=== PATIENT | female | born 1970 | race Caucasian/White ===

== ENCOUNTER 2018-03-23 05:28 | Observation (INO) | payer OTHER ==
--- NOTE | 2018-03-18 13:36 | GHP ---
DATE OF ADMISSION: 03/23/2018 ADMITTING DIAGNOSIS: 1. Menorrhagia, failed ablation. 2. Uterine leiomyomata. HISTORY OF PRESENT ILLNESS: The patient is a 47-year-old nulliparous female who presents to the office for a surgical consult. The patient is status post an endometrial ablation, hysteroscopy and myomectomy in 02/19/17, who presents now with complaints of heavy menses. She stated she had no cycles for 8 months after the ablation and then about 2 months ago, she began to have her menses again. They last anywhere from 5 to 6 days and are even heavier than prior to ablation. She notes small sized clots. She wears tampons and changes them every 1 to 2 hours. She states her bleeding is interfering with her lifestyle. She also notes midcycle pain that is worse on the right side than the left, lasting about 3 to 5 days each month. Minimal relief with Tylenol and Advil. She does note some mild nausea with pain, but no vomiting. She denies any intermenstrual bleeding. The patient does have a history of anemia. Pelvic ultrasound a year ago showed uterus with numerous fibroids filling the cavity ranging anywhere from 2 to 5 cm. Pap smears are up to date. The patient is interested in definitive treatment at this time. She desires a hysterectomy with removal of her right ovary. PAST OB HISTORY: Patient is nulliparous. 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 Cycles were regular, but heavy and then she underwent an ablation in 2016 and had no cycles for 8 months; now cycles are heavier and lasting longer. She denies a history of abnormal Pap smears or any exposure to sexually transmitted diseases. CURRENT MEDICATIONS: Tylenol as needed, vitamin D3, levothyroxine 50 mcg, and Cytomel 5 mcg. ALLERGIES: No known drug allergies. PAST MEDICAL HISTORY: Infertility, hypothyroidism, uterine fibroids, menorrhagia. PAST SURGICAL HISTORY: In 2003, myomectomy. In 2008, laparoscopy with resection of uterine fibroids and scar tissue. In 2009, laparoscopy with resection of scar tissue, and laparotomy. In 01/2017, she had an endometrial ablation, hysteroscopy with removal of fibroids. FAMILY HISTORY: Maternal grandfather, colon cancer. Father, heart disease. Mother and paternal grandmother, arthritis. SOCIAL HISTORY: Patient is and lives with her . 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 She denies any current alcohol, tobacco, or illicit drug use. REVIEW OF SYSTEMS: Ten point review of systems negative. Pertinent positives noted in HPI. LABORATORY: Hemoglobin 13.9, hematocrit 42.4. STUDIES: Enlarged uterus measuring 12 x 8 x 10 cm with multiple fibroids, largest measuring 5 x 5 cm; second fibroid is located left anterior measuring 4 x 4 x 3 cm and third fibroid located left mid uterus measuring 2 x 2 x 2 cm. Bilateral ovaries normal. Small amount of free fluid seen. PHYSICAL EXAMINATION: VITAL SIGNS: On admission vital signs are stable. Patient is afebrile. GENERAL: The patient is well-nourished, well-developed female. Alert and oriented x3. No apparent distress. CARDIOVASCULAR: Regular rate and rhythm. LUNGS: Clear to auscultation. SKIN: Warm, dry without rash. NEURO: Grossly intact. ABDOMEN: Soft, nontender, nondistended. Multiple surgical scars. BIMANUAL: Uterus is enlarged to about 10-12 week size , irregular, mobile, nontender. No adnexal masses noted. EXTREMITIES: Normal to inspection without calf tenderness or edema. ASSESSMENT/PLAN: Patient is a 47-year-old nulliparous female with menorrhagia, failed ablation, and uterine leiomyomata. 1. Discussed the procedure of laparoscopic hysterectomy with removal of uterus , bilateral tubes and right ovary. Discussed its limitations, n.p.o. status, postop recovery and need for possible large incision. 2. Discussed risks, benefits, alternatives of the procedure including but not limited to, bleeding, infection, and damage to surrounding organs. The patient understands all risks of surgery and wants to proceed at this time. 3. Antibiotics environmental service aide to operating room. 4. Sequential compression devices for deep venous thrombosis prophylaxis. /[id number]/MODL MTDD
[2018-03-23] MEDS ORDERED: PHENAZOPYRIDINE HCL 100 MG TAB PO ONE (05:36)
[2018-03-23] MEDS ORDERED: ceFAZolin 2 GM/DEXTROSE 100 ML IV ONE (05:36)
[2018-03-23] MEDS ORDERED: LR 1,000 ML IV ONE (05:37)
[2018-03-23] MEDS ORDERED: PHENAZOPYRIDINE HCL 200 MG TAB PO ONE (06:15)
[2018-03-23] MEDS ORDERED: SCOPOLAMINE HYDROBROMIDE 1 MG/3 DAYS PATCH TD ONE (06:21)
[2018-03-23] MEDS ORDERED: MIDAZOLAM 2 MG/2 ML VIAL IVP ONE (06:21)
[2018-03-23] MEDS ORDERED: BUPIVACAINE 0.5% 30 ML SDV ONE (06:25)
--- NOTE | 2018-03-23 07:05 | PDANEPAE ---
ANE Past Medical History - Cardiovascular History Hx Hypertension: No Hx Arrhythmias: No Hx Chest Pain: No Hx Coronary Artery / Peripheral Vascular Disease: No Hx CHF / Valvular Disease: No Hx Palpitations: No - Pulmonary History Hx COPD: No Hx Asthma/Reactive Airway Disease: No Hx Recent Upper Respiratory Infection: No Hx Oxygen in Use at Home: No Hx Sleep Apnea: No Sleep Apnea Screening Result - Last Documented: Negative - Neurologic History Hx Cerebrovascular Accident: No Hx Seizures: No Hx Dementia: No - Endocrine History Hx Diabetes: No - Renal History Hx Renal Disorders: No - Liver History Hx Hepatic Disorders: No - Neurological & Psychiatric Hx Hx Neurological and Psychiatric Disorders: No - Cancer History Hx Cancer: No - Congenital Disorder History Hx Congenital Disorders: No - GI History Hx Gastrointestinal Disorders: No - Other Health History Other Health History: none - Chronic Pain History Chronic Pain: No - Surgical History Prior Surgeries: myomectomy uterine ablation last surgery. dental implants 03/19 ANE Review of Systems Review of Systems: - Exercise capacity METS (RN): 5 METS ANE Patient History - Allergies Allergies/Adverse Reactions: No Known Allergies Allergy (Verified 02/19/18 11:35) - Home Medications Home Medications: Acetaminophen [Tylenol 325mg (*)] 325 mg PO Q6 PRN 02/19/18 [Last Taken 03/21/18 ] Cholecalciferol Vit D3 [Vitamin D3 (*)] 1,000 units PO DAILY 02/19/18 [Last Taken 02/21/18] Levothyroxine [Synthroid 50 mcg (*)] 50 mcg PO DAILY06 02/19/18 [Last Taken ] Liothyronine Sodium [Cytomel 5 mcg (*)] 5 mcg PO BID 02/19/18 [Last Taken ] - NPO status NPO Since - Liquids (Date): 03/22/18 NPO Since - Liquids (Time): 20:00 NPO Since - Solids (Date): 03/22/18 NPO Since - Solids (Time): 17:30 - Anes Hx Anes Hx: post operative nausea - Smoking Hx Smoking Status: Never smoked - Family Anes Hx Family Anes Hx: none Family Hx Anesthesia Complications: none ANE Labs/Vital Signs - Vital Signs Blood Pressure: 112/73 Heart Rate: 72 Respiratory Rate: 16 O2 Sat (%): 95 Height: 162.56 cm Weight: 58.967 kg ANE Physical Exam - Airway Neck exam: FROM Mallampati Score: Class 1 Mouth exam: normal dental/mouth exam - Pulmonary Pulmonary: clear to auscultation - Cardiovascular Cardiovascular: regular rate and rhythym - ASA Status ASA Status: II ANE Anesthesia Plan Anesthesia Plan: general endotracheal anesthesia
[2018-03-23] MEDS ORDERED: fentaNYL 100 MCG/2 ML INJ ONE ×2 (07:08→10:24)
[2018-03-23] MEDS ORDERED: PROPOFOL 200 MG/20 ML VIAL ONE (07:08)
[2018-03-23] MEDS ORDERED: ROCURONIUM 50 MG/5 ML VIAL ONE ×2 (07:10→07:37)
[2018-03-23] MEDS ORDERED: DEXAMETHASONE 4 MG/ML VIAL ONE (07:10)
--- NOTE | 2018-03-23 07:15 | PDHPUP ---
History & Physical Update H&P update statement: This history and physical update is based on an assessment of the patient which was completed after admission or registration (within 24 hours), but prior to the surgery/procedure. H&P update: H&P reviewed & patient examined, no change in patient's condition since H&P completed
[2018-03-23] MEDS ORDERED: HYDROmorphONE/DILAUDID 2 MG/ML INJ ONE ×2 (07:56→09:49)
[2018-03-23] MEDS ORDERED: ONDANSETRON 4 MG/2 ML VIAL ONE (08:58)
[2018-03-23] MEDS ORDERED: KETOROLAC 30 MG/1 ML SDV ONE (09:15)
[2018-03-23] MEDS ORDERED: HYDROmorphONE/DILAUDID 2 MG/ML INJ IVP PRN (09:16)
[2018-03-23] MEDS ORDERED: fentaNYL 100 MCG/2 ML INJ IVP PRN (09:16)
[2018-03-23] MEDS ORDERED: ONDANSETRON 4 MG/2 ML VIAL IVP PRN (09:16)
[2018-03-23] MEDS ORDERED: PROMETHAZINE HCL 25 MG/ML INJ IVP PRN (09:16)
[2018-03-23] MEDS ORDERED: METOCLOPRAMIDE 10 MG/2 ML VIAL IVP PRN (09:16)
[2018-03-23] MEDS ORDERED: DIAZEPAM 5 MG/ML 1 ML SYR IVP PRN (09:16)
[2018-03-23] MEDS ORDERED: ALBUTEROL 3 ML DEYVIAL IH PRN (09:16)
[2018-03-23] MEDS ORDERED: NALOXONE HCL 0.4 MG/ML INJ IVP PRN (09:16)
[2018-03-23] MEDS ORDERED: LR 500 ML IV PRN (09:16)
--- NOTE | 2018-03-23 10:15 | POSTOPPROG ---
Post Op Note Date of Operation: 03/23/18 Surgeon: Lupis Gandara Rubber Gasket Inspector Trimmer: Eagle Quinones Anesthesiologist: Nimo Land Anesthesia: GET(General Endotracheal) Pre-op Diagnosis: Menorrhagia, failed ablation; uterine fibroids Post-op Diagnosis: HEATHER Indication: 47 y/u nullip with menorrhagia, failed ablation 02/15; mult fibroid uterus Procedure: TLH, BS, RO, Cystoscopy Findings: Large ut sounded 11-12cm with mult. fibroids; nml santa b/l tubes and ovaries Inf/Abcess present in the surg proc area at time of surgery?: No Depth: Organ Space EBL: 50-100 (50cc) Total fluids administered: 1 L LR UO: 300 cc clear urine Complications: None Specimen(s): Uterus, cervix, b/l tubes and right ovary
[2018-03-23] MEDS ORDERED: ONDANSETRON DISINTEGRATING 4 MG TAB PO PRN (10:18)
[2018-03-23] MEDS ORDERED: ZOLPIDEM TARTRATE 5 MG TAB PO PRN (10:18)
[2018-03-23] MEDS ORDERED: LR 1,000 ML IV SCH (10:30)
--- NOTE | 2018-03-23 13:09 | POSTANESTH ---
Post Anesthetic Evaluation Cardiovascular Status: Normal, Stable Respiratory Status: Normal, Stable Level of Consciousness/Mental Status: Can Participate in Eval Pain Control: Adequate, Prn Tx Ordered Nausea/Vomiting Control: Adequate, Prn Tx Ordered Complications Possibly Related to Anesthesia: None Noted
[2018-03-23] MEDS: HYDROCODONE/APAP 5/325 TAB PO PRN ×2 (14:02→19:01)
[2018-03-23] MEDS: KETOROLAC 30 MG/1 ML SDV IVP SCH ×2 (15:32→21:35)
[2018-03-24] MEDS: HYDROCODONE/APAP 5/325 TAB PO PRN ×2 (00:54→06:02)
[2018-03-24] MEDS: KETOROLAC 30 MG/1 ML SDV IVP SCH ×2 (03:41→08:59)
[2018-03-24] MEDS ORDERED: LEVOTHYROXINE 50 MCG TAB PO SCH (06:00)
--- NOTE | 2018-03-24 07:51 | SOAPPROG ---
SOAP Progress Note Assessment/Plan: Assessment: s/p TLH, BS and RO secondary to menorrhagia, uterine fibroids, POD # 1 - pt is stable Plan: Continue routine post-op care Good UO overnight H/H stable this am Plan for d/c after pt voids with adequate output Instructions reviewed with pt Rx given for [place] and Motrin Cont stool softener Pelvic rest Lifting restrictions RTO in 2 weeks for post-op check 03/24/18 07:46 Subjective: Pt seen and examined. Doing well, no complaints. She slept most of the night. Pain is overall well controlled. She had some R shoulder pain that now resolved. Pt is OOB, palma regular diet, sosa removed at 0600-pt has not voided yet, passing flatus. Denies any f/c/n/v/CP or SOB. No calf tenderness. Minimal spotting noted. Objective: Vital Signs Temp Pulse Resp BP Pulse Ox 37.5 C 50 L 16 98/60 L 95 03/24/18 05:05 03/24/18 05:05 03/24/18 05:05 03/24/18 05:05 03/24/18 05:05 Laboratory Results 03/24/18 06:00 03/23/18 03/24/18 03/25/18 05:59 05:59 05:59 Intake Total 910 Output Total 2400 Balance -1490 Physical Exam - Physical Exam General Appearance: WD/WN, alert, no apparent distress Respiratory: lungs clear, normal breath sounds Cardiac/Chest: regular rate, rhythm Abdomen: normal bowel sounds, soft, distended (mild), other (appropriate tenderness; Laparoscopic incisions-C/D/I, well-approximated with Dermabond) Pelvic Exam: deferred Skin: normal color, warm/dry Extremities: non-tender, normal inspection Neuro/Psych: alert, normal mood/affect, oriented x 3 ICD10 Worksheet Patient Problems: Problems Problem Status Onset Menorrhagia Acute Uterine fibroid Acute
[2018-03-24] MEDS ORDERED: LIOTHYRONINE SODIUM 5 MCG TAB PO SCH (09:00)
--- NOTE | 2018-03-24 10:25 | GOP ---
DATE OF OPERATION: 03/23/2018 SURGEON: Lupis Gandara DO LAMINATION ASSEMBLER: Eagle Quinones MD. ANESTHESIA: General with endotracheal tube. ANESTHESIOLOGIST: Nimo Land MD. PREOPERATIVE DIAGNOSIS: 1. Menorrhagia, failed ablation. 2. Uterine leiomyomata. POSTOPERATIVE DIAGNOSIS: 1. Menorrhagia, failed ablation. 2. Uterine leiomyomata. PROCEDURE PERFORMED: Total laparoscopic hysterectomy, bilateral salpingectomy, right oophorectomy, and cystoscopy. FINDINGS: An enlarged, irregularly-shaped uterus with multiple fibroids that sounded to 11 to 12 cm. Grossly normal-appearing bilateral tubes and ovaries. Upper abdomen grossly normal-appearing. SPECIMENS: Uterus with cervix, bilateral tubes and right ovary. ESTIMATED BLOOD LOSS: 50 cc. INDICATIONS: The patient is a 47-year-old nulliparous female with a long history of menorrhagia and uterine fibroids. She has had multiple surgeries for removal of fibroids and had an ablation for menorrhagia in January 2017. She had no cycles for 8 months and then started bleeding heavy again. The patient desires definitive treatment since failed ablation. Discussed the risks of procedure including but not limited to, bleeding, infection, and damage to surrounding organs. The patient understands all risks of the procedure and wants to proceed at this time. Patient was properly consented. DESCRIPTION OF PROCEDURE: The patient was taken back to the operating room where general anesthesia was obtained without difficulty. Patient was then placed in dorsal lithotomy position, and prepped and draped in the usual sterile fashion. A Leigh catheter was placed at this time. After a WHO time- out was performed, an open ended speculum was placed in the vagina. The cervix was visualized. The anterior lip of the cervix was grasped with a single-tooth tenaculum. The cervix then sounded to 11 to 12 cm and was dilated up to a #6 Hegar. A VCare manipulator with medium-sized cervical cup was inserted and used as a means to manipulate the uterus. All instruments were then removed from the vagina. Attention was turned to the abdomen. 0.5% plain Marcaine was used for infiltration of infraumbilical area and a 5 mm skin incision was then made in this area using a scalpel. The Veress needle was inserted uneventfully while tenting the abdominal wall. Opening pressure was less than 8 mmHg. Peritoneal cavity was then insufflated with CO2 gas to a maximum pressure of 20 mmHg. The Veress needle was then removed, and a 5 mm trocar attached to a 0-degree laparoscope was introduced without difficulty through this site directly into the peritoneal cavity. Pelvic organs were visualized. After additional 5% plain Marcaine infiltration was done, a 10 mm skin incision was made on the right side and a 5 mm skin incision was made on the left side. Atraumatic trocars were then placed under direct visualization. At this time, the uterus was then upheld from below which revealed the findings noted above. Beginning on the right side, the infundibulopelvic ligament was identified along with the ureter with noted peristalsis. At this time, using the LigaSure device, IP ligament was clamped, cauterized multiple times and transected. Hemostasis was noted. The broad ligament was then clamped, cauterized multiple times and transected. We then turned our attention to the round ligament which was cauterized and cut using the LigaSure. The anterior leaf of the broad ligament was then taken down the right side, dissecting down toward the peritoneal reflection at the base of the bladder adjacent to the cervix. Bladder flap was then created without difficulty. Uterine arteries were then clamped, cauterized multiple times and ligated and the pedicles did appear hemostatic. We then turned our attention to the left side. The fimbria of the left tube was identified and then grasped with an atraumatic grasper and using LigaSure, the tube was then transected all the way to its cornual insertion and removed through 10 mm port without difficulty. Similar procedure was done on the left side and all pedicles appeared hemostatic. At this time, we were ready for colpotomy. This was done circumferentially with the monopolar J- hook. We then turned our attention down below and with the size of the uterus, it had to be morcellated. This was done using a knife and after 5 pieces were removed, the uterus, right tube and ovary were then removed through the vagina and sent to pathology. A small tear was noted within the posterior cul-de-sac, which was repaired with 3-0 Vicryl. A Juanjose-Murphy bulb was placed inside the vagina to perform a pneumatic seal. We then went back up into the abdomen, and with the laparoscope, all the pedicles as well as the cuff appeared hemostatic. The vaginal cuff was then closed with a V-Loc barbed stitch. Following this closure, reinspection revealed hemostasis. The pelvis was then irrigated with normal saline. We turned our attention to cystoscopy. The Leigh was removed, and a 70 degree cystoscope was then inserted gently into the bladder which was distended with normal saline. The dome of the bladder was visualized, as well as bilateral spill from the ureteral orifices. The cystoscope was then removed from the bladder which was allowed to drain. We then went back up to the abdomen and turned our attention to the fascia of the 10 mm port. The trocar was removed and the fascia was closed with a Jose-Alonzo device using 0 Vicryl. All other ports were then removed under direct visualization and all air was allowed to escape the abdomen. The skin incisions were closed with 3-0 Monocryl and Dermabond. The patient tolerated the procedure well. There were no complications. At the end of the procedure, all instruments were removed from the vagina. Hemostasis was noted. All sponges, instruments, lap and needle counts were correct x2. The patient was then awakened, taken out of dorsal lithotomy position and sent to recovery room in stable condition. IV FLUIDS: 1 L of LR. URINE OUTPUT: 300 cc of Pyridium-stained urine at the end of the procedure. COMPLICATIONS: None. /[id number]/MODL MTDCandace
[2018-03-24 12:00] VITALS: BP 87/55
[2018-03-24] MEDS ORDERED: IBUPROFEN 600 MG TAB PO PRN (12:00)
== END 2018-03-24 12:00 | disposition home or self-care (01) ==
LOC: F3E 05:28 → FOB 11:54
PROVIDERS: ADMIT Obstetrics & Gynecology; ATTEND Obstetrics & Gynecology
DX: D25.9 Leiomyoma of uterus, unspecified (principal); N92.0 Excessive and frequent menstruation with regular cycle; E03.9 Hypothyroidism, unspecified; Z23 Encounter for immunization
CPT/HCPCS: 58573; 90471; G0378; G0008; J0690; J1100; J1170; J1885; J2250; J2405; J2704; J3010